=== PATIENT | female | born 1950 | race Caucasian/White ===

== ENCOUNTER → 2016-11-17 | Outpatient (CLI) | payer OTHER | LOC: FIMAGING 10:24 | PROVIDERS: ATTEND Internal Medicine | DX: Z13.820 Encounter for screening for osteoporosis (principal); E03.9 Hypothyroidism, unspecified; Z78.0 Asymptomatic menopausal state ==

== ENCOUNTER → 2017-03-10 | Outpatient (CLI) | payer OTHER | LOC: FIMAGING 13:56 | PROVIDERS: ATTEND Nurse Practitioner Women's Health | DX: Z12.31 Encounter for screening mammogram for malignant neoplasm of breast (principal) | CPT/HCPCS: G0202 ==

== ENCOUNTER → 2018-05-02 | Outpatient (CLI) | payer OTHER | LOC: BHFA 13:30 | PROVIDERS: ATTEND Internal Medicine Cardiovascular Disease | DX: R07.9 Chest pain, unspecified (principal); Z82.49 Family history of ischemic heart disease and other diseases of the circulatory system | CPT/HCPCS: 78452; 93017; A9500 ==

== ENCOUNTER → 2018-05-03 | Outpatient (CLI) | payer OTHER | LOC: BHFA 09:15 | PROVIDERS: ATTEND Internal Medicine Cardiovascular Disease | DX: R07.9 Chest pain, unspecified (principal); R06.02 Shortness of breath ==